=== PATIENT | female | born 1980 | race Caucasian/White ===

== ENCOUNTER 2020-11-10 10:02 | Outpatient (CLI) | payer OTHER | END 2020-11-10 20:30 | disposition home or self-care (01) | LOC: SUS 10:02 | PROVIDERS: ATTEND Internal Medicine | DX: E04.2 Nontoxic multinodular goiter (principal) | CPT/HCPCS: 76536-TC ==

== ENCOUNTER 2020-11-18 08:42 | Outpatient (CLI) | payer OTHER ==
[2020-11-18 09:48] LABS: BILIRUBIN,URINE NEGATIVE (NEGATIVE); BLOOD, URINE NEGATIVE (NEGATIVE); CLARITY/URINE CLEAR (CLEAR); COLOR,URINE YELLOW (YELLOW); GLUCOSE,URINE NEGATIVE (NEGATIVE); KETONES,URINE NEGATIVE (NEGATIVE); LEUKOCYTE ESTERASE ,URINE NEGATIVE (NEGATIVE); NITRITE, URINE NEGATIVE (NEGATIVE); PH,URINE 7.5 (5.0-8.0); PROTEIN URINE NEGATIVE (NEGATIVE); UROBILINOGEN,URINE 0.2 (0.2-1.0)
[2020-11-18 09:56] LABS: BASOPHILS % (AUTO) 0.8 % (0.0-2.0); HEMATOCRIT 41.8 % (36-48); LYMPHOCYTES # (AUTO) 1.1 K/uL (1.0-5.5); MEAN CORPUSCULAR HEMOGLOBIN 29 pg (27-31); MEAN CORPUSCULAR HGB CONC 34 % (32-36); MEAN CORPUSCULAR VOLUME 88 fL (79.0-98.0); MONOCYTES # (AUTO) 0.3 K/uL (0.0-1.0); MONOCYTES % (AUTO) 6.9 % (1.7-9.3); NEUTROPHILS # (AUTO) 3.1 K/uL (1.8-7.7); NEUTROPHILS % (AUTO) 67.3 % (40.0-70.0); PLATELET COUNT (AUTO) 200 K/uL (130-430); RED BLOOD CELL COUNT(AUTO) 4.77 MIL/uL (4.2-6.2); RED CELL DISTRIBUTION WIDTH 13.2 % (9.0-15.0); WHITE BLOOD COUNT (AUTO) 4.7 K/uL (4.8-10.8)
[2020-11-18 10:13] LABS: ALBUMIN 4.1 g/dL (3.4-4.8); CALCIUM 9.1 mg/dL (8.4-11.0); CREATININE 0.74 mg/dL (0.55-1.30); TOTAL BILIRUBIN 0.4 mg/dL (0.0-1.0)
[2020-11-18 10:54] LABS: THYROID STIMULATING HORMONE 0.5 uIu/mL (0.36-3.74)
[2020-11-19 05:08] LABS: HEMOGLOBIN A1C 5.4 % (4.8-5.6)
== END 2020-11-18 20:29 | disposition home or self-care (01) ==
LOC: SLB 08:42
PROVIDERS: ATTEND Internal Medicine
DX: E78.5 Hyperlipidemia, unspecified (principal); E03.9 Hypothyroidism, unspecified; E55.9 Vitamin D deficiency, unspecified; R73.9 Hyperglycemia, unspecified
CPT/HCPCS: 36415; 80053; 80061; 81003; 82306; 82607; 83036; 84443; 85025

== ENCOUNTER 2021-01-21 07:05 | Outpatient (CLI) | payer OTHER ==
[2021-01-21 08:19] LABS: FREE T4 (FREE THYROXINE) 0.9 ng/dl (0.8-1.5); THYROID STIMULATING HORMONE 0.7 uIu/mL (0.36-3.74)
== END 2021-01-21 20:14 | disposition home or self-care (01) ==
LOC: SLB 07:05
PROVIDERS: ATTEND Internal Medicine
DX: E03.9 Hypothyroidism, unspecified (principal)
CPT/HCPCS: 36415; 84439; 84443; 86376

== ENCOUNTER 2021-11-23 09:47 | Outpatient (CLI) | payer OTHER ==
[2021-11-23 10:59] LABS: FREE T4 (FREE THYROXINE) 0.9 ng/dl (0.8-1.5); THYROID STIMULATING HORMONE 0.63 uIu/mL (0.36-3.74)
== END 2021-11-23 20:06 | disposition home or self-care (01) ==
LOC: SLB 09:47
PROVIDERS: ATTEND Internal Medicine
DX: E03.9 Hypothyroidism, unspecified (principal)
CPT/HCPCS: 36415; 84439; 84443; 86376

== ENCOUNTER 2021-11-26 09:41 | Outpatient (CLI) | payer OTHER | END 2021-11-26 19:48 | disposition home or self-care (01) | LOC: SUS 09:41 | PROVIDERS: ATTEND Internal Medicine | DX: E04.2 Nontoxic multinodular goiter (principal) | CPT/HCPCS: 76536-TC ==

== ENCOUNTER 2021-12-30 08:47 | Outpatient (CLI) | payer OTHER | END 2021-12-30 20:46 | disposition home or self-care (01) | LOC: SMI 08:47 | PROVIDERS: ATTEND Internal Medicine | DX: M75.102 Unspecified rotator cuff tear or rupture of left shoulder, not specified as traumatic (principal); M54.31 Sciatica, right side; M54.59 Other low back pain | CPT/HCPCS: 72148; 73221 ==

== ENCOUNTER 2022-02-25 08:33 | Outpatient (CLI) | payer OTHER ==
[2022-02-25 08:59] LABS: BASOPHILS # (AUTO) 0.1 K/uL (0.0-0.2); BASOPHILS % (AUTO) 3.2 % (0.0-2.0); EOSINOPHILS # (AUTO) 0.1 K/uL (0.0-0.4); EOSINOPHILS % (AUTO) 1.4 % (0.0-4.0); HEMATOCRIT 39.8 % (36-48); HEMOGLOBIN 13.6 g/dL (12.0-16.0); LYMPHOCYTES # (AUTO) 0.9 K/uL (1.0-5.5); LYMPHOCYTES % (AUTO) 19.7 % (20.5-51.5); MEAN CORPUSCULAR HEMOGLOBIN 30 pg (27-31); MEAN CORPUSCULAR HGB CONC 34 % (32-36); MEAN CORPUSCULAR VOLUME 87 fL (79.0-98.0); MONOCYTES # (AUTO) 0.4 K/uL (0.0-1.0); NEUTROPHILS % (AUTO) 66.7 % (40.0-70.0); PLATELET COUNT (AUTO) 189 K/uL (130-430); RED CELL DISTRIBUTION WIDTH 13.4 % (9.0-15.0); WHITE BLOOD COUNT (AUTO) 4.4 K/uL (4.8-10.8)
[2022-02-25 09:24] LABS: ALBUMIN 3.8 g/dL (3.4-4.8); CALCIUM 8.6 mg/dL (8.4-11.0); CREATININE 0.76 mg/dL (0.55-1.30); POTASSIUM 4.1 mmol/L (3.5-5.1); THYROID STIMULATING HORMONE 0.73 uIu/mL (0.36-3.74); TOTAL BILIRUBIN 0.4 mg/dL (0.0-1.0)
[2022-02-26 07:06] LABS: HEMOGLOBIN A1C 5.3 % (4.8-5.6)
== END 2022-02-25 21:19 | disposition home or self-care (01) ==
LOC: SUS 08:33
PROVIDERS: ATTEND Internal Medicine
DX: E04.2 Nontoxic multinodular goiter (principal); R10.2 Pelvic and perineal pain; E66.9 Obesity, unspecified; E55.9 Vitamin D deficiency, unspecified; E56.9 Vitamin deficiency, unspecified
CPT/HCPCS: 36415; 76856-TC; 80053; 80061; 82306; 82607; 83036; 84443; 85025

== ENCOUNTER 2022-07-14 10:32 | Outpatient (CLI) | payer OTHER | END 2022-07-14 19:15 | disposition home or self-care (01) | LOC: SUS 10:32 | PROVIDERS: ATTEND Internal Medicine | DX: E04.2 Nontoxic multinodular goiter (principal) | CPT/HCPCS: 76536-TC ==

== ENCOUNTER 2022-08-02 09:55 | Outpatient (CLI) | payer OTHER ==
[2022-08-02 10:25] LABS: BILIRUBIN,URINE NEGATIVE (NEGATIVE); BLOOD, URINE NEGATIVE (NEGATIVE); CLARITY/URINE CLEAR (CLEAR); COLOR,URINE YELLOW (YELLOW); GLUCOSE,URINE NEGATIVE (NEGATIVE); KETONES,URINE NEGATIVE (NEGATIVE); LEUKOCYTE ESTERASE ,URINE NEGATIVE (NEGATIVE); NITRITE, URINE NEGATIVE (NEGATIVE); PROTEIN URINE NEGATIVE (NEGATIVE); UROBILINOGEN,URINE 0.2 (0.2-1.0)
[2022-08-02 10:50] LABS: BASOPHILS % (AUTO) 0.9 % (0.0-2.0); EOSINOPHILS % (AUTO) 0.9 % (0.0-4.0); HEMATOCRIT 41.7 % (36-48); LYMPHOCYTES # (AUTO) 1.1 K/uL (1.0-5.5); LYMPHOCYTES % (AUTO) 28.8 % (20.5-51.5); MEAN CORPUSCULAR HEMOGLOBIN 29 pg (27-31); MEAN CORPUSCULAR HGB CONC 34 % (32-36); MEAN CORPUSCULAR VOLUME 87 fL (79.0-98.0); MONOCYTES # (AUTO) 0.3 K/uL (0.0-1.0); MONOCYTES % (AUTO) 7.6 % (1.7-9.3); NEUTROPHILS # (AUTO) 2.4 K/uL (1.8-7.7); NEUTROPHILS % (AUTO) 61.8 % (40.0-70.0); PLATELET COUNT (AUTO) 196 K/uL (130-430); RED BLOOD CELL COUNT(AUTO) 4.79 MIL/uL (4.2-6.2); RED CELL DISTRIBUTION WIDTH 13.1 % (9.0-15.0)
[2022-08-02 10:54] LABS: ALBUMIN 4.1 g/dL (3.4-4.8); CALCIUM 9.1 mg/dL (8.4-11.0); CREATININE 0.64 mg/dL (0.55-1.30); THYROID STIMULATING HORMONE 0.55 uIu/mL (0.34-4.82); TOTAL BILIRUBIN 0.5 mg/dL (0.0-1.0)
[2022-08-03 06:21] LABS: HEMOGLOBIN A1C 5.3 % (4.8-5.6)
== END 2022-08-02 19:07 | disposition home or self-care (01) ==
LOC: SLB 09:55
PROVIDERS: ATTEND Internal Medicine
DX: I07.1 Rheumatic tricuspid insufficiency (principal); E66.9 Obesity, unspecified; E04.2 Nontoxic multinodular goiter; E55.9 Vitamin D deficiency, unspecified; E56.9 Vitamin deficiency, unspecified; R07.9 Chest pain, unspecified
CPT/HCPCS: 36415; 80053; 80061; 81003; 82306; 82607; 83036; 84443; 85025; 93005; 93306

== ENCOUNTER 2022-09-02 09:07 | Outpatient (CLI) | payer OTHER | END 2022-09-02 21:07 | disposition home or self-care (01) | LOC: SUS 09:07 | PROVIDERS: ATTEND Internal Medicine | DX: Z12.31 Encounter for screening mammogram for malignant neoplasm of breast (principal); K82.8 Other specified diseases of gallbladder; R10.10 Upper abdominal pain, unspecified; N63.14 Unspecified lump in the right breast, lower inner quadrant; N63.23 Unspecified lump in the left breast, lower outer quadrant | CPT/HCPCS: 76700-TC; 77067 ==

== ENCOUNTER 2023-03-04 10:47 | Outpatient (CLI) | payer OTHER ==
[2023-03-04 12:15] LABS: THYROID STIMULATING HORMONE 0.75 uIu/mL (0.34-4.82)
[2023-03-05 08:06] LABS: THYROID PEROXIDASE (TPO) AB <9 IU/mL (0-34)
== END 2023-03-04 18:54 | disposition home or self-care (01) ==
LOC: SLB 10:47
PROVIDERS: ATTEND Internal Medicine
DX: E04.2 Nontoxic multinodular goiter (principal); R92.2 Inconclusive mammogram; E03.9 Hypothyroidism, unspecified; E55.9 Vitamin D deficiency, unspecified
CPT/HCPCS: 36415; 76536-TC; 76641; 77066; 82306; 84439; 84443; 86376

== ENCOUNTER 2023-06-19 14:22 | Emergency (ER) | payer OTHER ==
[~2023-06-19] VITALS: Ht 162.6 cm; Wt 86.2 kg
[2023-06-19 14:30] VITALS: BP_SYST 152; PULSE 96; RESP 18; TEMP 97.6; O2SAT 100
[2023-06-19] MEDS ORDERED: predniSONE 20 MG TABLET PO ONE (14:30)
[2023-06-19] MEDS ORDERED: EPINEPHRINE HCL/PF 1 MG/ML AMP IM ONE (14:30)
[2023-06-19] MEDS ORDERED: FAMOTIDINE 20 MG TABLET PO ONE (14:30)
[2023-06-19] MEDS ORDERED: EPIN0.3P3 IM (15:34)
[2023-06-19] MEDS ORDERED: PRED20TA PO (15:34)
[2023-06-19 18:15] VITALS: BP_SYST 160; PULSE 62; RESP 18; TEMP 97.6; O2SAT 100
== END 2023-06-19 15:50 | disposition home or self-care (01) ==
LOC: SED 14:22
DX: T78.49XA Other allergy, initial encounter (principal); X58.XXXA Exposure to other specified factors, initial encounter
CPT/HCPCS: 99283; 96372; J7512; J0171

== ENCOUNTER 2023-07-18 09:54 | Outpatient (CLI) | payer OTHER ==
[~2023-07-18 09:54] MED LIST: EPIN0.3P3 IM; PRED20TA PO
[2023-07-18 11:38] LABS: BASOPHILS % (AUTO) 0.8 % (0.0-2.0); HEMOGLOBIN 14.1 g/dL (12.0-16.0); LYMPHOCYTES # (AUTO) 1.3 K/uL (1.0-5.5); MEAN CORPUSCULAR HEMOGLOBIN 30 pg (27-31); MEAN CORPUSCULAR HGB CONC 34 % (32-36); MEAN CORPUSCULAR VOLUME 88 fL (79.0-98.0); MONOCYTES # (AUTO) 0.3 K/uL (0.0-1.0); MONOCYTES % (AUTO) 7.3 % (1.7-9.3); NEUTROPHILS # (AUTO) 2.6 K/uL (1.8-7.7); NEUTROPHILS % (AUTO) 59.9 % (40.0-70.0); PLATELET COUNT (AUTO) 237 K/uL (130-430); RED BLOOD CELL COUNT(AUTO) 4.78 MIL/uL (4.2-6.2); RED CELL DISTRIBUTION WIDTH 13.8 % (9.0-15.0); WHITE BLOOD COUNT (AUTO) 4.3 K/uL (4.8-10.8)
[2023-07-18 12:03] LABS: ALBUMIN 4.2 g/dL (3.4-4.8); CALCIUM 9.4 mg/dL (8.4-11.0); CREATININE 0.7 mg/dL (0.55-1.30); POTASSIUM 3.7 mmol/L (3.5-5.1); TOTAL BILIRUBIN 0.5 mg/dL (0.0-1.0); TOTAL PROTEIN, SERUM 8.2 g/dL (6.4-8.3)
== END 2023-07-18 19:10 | disposition home or self-care (01) ==
LOC: SLB 09:54
PROVIDERS: ATTEND Internal Medicine
DX: E04.2 Nontoxic multinodular goiter (principal); Z71.3 Dietary counseling and surveillance
CPT/HCPCS: 36415; 80053; 80061; 82306; 82607; 83037; 84443; 85025

== ENCOUNTER 2023-08-22 09:40 | Outpatient (CLI) | payer OTHER | END 2023-08-22 18:40 | disposition home or self-care (01) | LOC: SLB 09:40 → SUS 18:40 | PROVIDERS: ATTEND Internal Medicine | DX: E04.2 Nontoxic multinodular goiter (principal) | CPT/HCPCS: 76536 ==

== ENCOUNTER 2023-11-14 08:54 | Outpatient (CLI) | payer OTHER ==
[2023-11-14 09:16] LABS: BASOPHILS % (AUTO) 0.7 % (0.0-2.0); EOSINOPHILS # (AUTO) 0.1 K/uL (0.0-0.4); EOSINOPHILS % (AUTO) 1.3 % (0.0-4.0); HEMATOCRIT 40.4 % (36-48); LYMPHOCYTES # (AUTO) 1.1 K/uL (1.0-5.5); LYMPHOCYTES % (AUTO) 24.2 % (20.5-51.5); MEAN CORPUSCULAR HEMOGLOBIN 31 pg (27-31); MEAN CORPUSCULAR HGB CONC 35 % (32-36); MEAN CORPUSCULAR VOLUME 88 fL (79.0-98.0); MONOCYTES # (AUTO) 0.4 K/uL (0.0-1.0); MONOCYTES % (AUTO) 8.2 % (1.7-9.3); NEUTROPHILS # (AUTO) 3.1 K/uL (1.8-7.7); NEUTROPHILS % (AUTO) 65.6 % (40.0-70.0); PLATELET COUNT (AUTO) 204 K/uL (130-430); RED BLOOD CELL COUNT(AUTO) 4.61 MIL/uL (4.2-6.2); RED CELL DISTRIBUTION WIDTH 13.5 % (9.0-15.0); WHITE BLOOD COUNT (AUTO) 4.7 K/uL (4.8-10.8)
[2023-11-14 09:25] LABS: ERYTHROCYTE SEDIMENTATION RATE 14 MM/HR (0-20)
[2023-11-14 09:45] LABS: ALBUMIN 4.1 g/dL (3.4-4.8); CALCIUM 8.4 mg/dL (8.4-11.0); CREATININE 0.73 mg/dL (0.55-1.30); POTASSIUM 4.3 mmol/L (3.5-5.1); THYROID STIMULATING HORMONE 0.69 uIu/mL (0.36-3.74); TOTAL BILIRUBIN 0.5 mg/dL (0.0-1.0); TOTAL PROTEIN, SERUM 8.1 g/dL (6.4-8.3)
== END 2023-11-14 19:02 | disposition home or self-care (01) ==
LOC: SLB 08:54
PROVIDERS: ATTEND Internal Medicine
DX: E66.9 Obesity, unspecified (principal); E78.5 Hyperlipidemia, unspecified; E03.9 Hypothyroidism, unspecified; M32.9 Systemic lupus erythematosus, unspecified
CPT/HCPCS: 36415; 80053; 80061; 84439; 84443; 85025; 85651

== ENCOUNTER 2024-03-07 11:21 | Outpatient (CLI) | payer OTHER | END 2024-03-07 18:03 | disposition home or self-care (01) | LOC: SRD 11:21 | PROVIDERS: ATTEND Internal Medicine | DX: J98.11 Atelectasis (principal); R06.02 Shortness of breath | CPT/HCPCS: 71046 ==

== ENCOUNTER 2024-04-03 10:54 | Outpatient (CLI) | payer OTHER ==
[2024-04-03 12:06] LABS: ERYTHROCYTE SEDIMENTATION RATE 9 MM/HR (0-20)
[2024-04-03 12:09] LABS: BASOPHILS % (AUTO) 0.7 % (0.0-2.0); EOSINOPHILS % (AUTO) 0.8 % (0.0-4.0); HEMATOCRIT 39.9 % (36-48); HEMOGLOBIN 13.4 g/dL (12.0-16.0); LYMPHOCYTES # (AUTO) 1.1 K/uL (1.0-5.5); LYMPHOCYTES % (AUTO) 18.7 % (20.5-51.5); MEAN CORPUSCULAR HEMOGLOBIN 30 pg (27-31); MEAN CORPUSCULAR HGB CONC 34 % (32-36); MEAN CORPUSCULAR VOLUME 88 fL (79.0-98.0); MONOCYTES # (AUTO) 0.4 K/uL (0.0-1.0); MONOCYTES % (AUTO) 6.8 % (1.7-9.3); NEUTROPHILS # (AUTO) 4.2 K/uL (1.8-7.7); PLATELET COUNT (AUTO) 225 K/uL (130-430); RED BLOOD CELL COUNT(AUTO) 4.54 MIL/uL (4.2-6.2); RED CELL DISTRIBUTION WIDTH 13.3 % (9.0-15.0); WHITE BLOOD COUNT (AUTO) 5.7 K/uL (4.8-10.8)
[2024-04-03 12:25] LABS: ALBUMIN 4.1 g/dL (3.4-4.8); CALCIUM 9.1 mg/dL (8.4-11.0); CREATININE 0.76 mg/dL (0.55-1.30); POTASSIUM 3.9 mmol/L (3.5-5.1); TOTAL BILIRUBIN 0.4 mg/dL (0.0-1.0); TOTAL PROTEIN, SERUM 7.7 g/dL (6.4-8.3)
== END 2024-04-03 18:37 | disposition home or self-care (01) ==
LOC: SLB 10:54
PROVIDERS: ATTEND Internal Medicine
DX: J18.9 Pneumonia, unspecified organism (principal)
CPT/HCPCS: 36415; 80053; 85025; 85651